=== PATIENT | male | born 1960 | race Caucasian/White ===

== ENCOUNTER 2016-08-29 11:01 | Emergency (ER) | payer MEDICARE, OTHER ==
[2016-08-29 12:41] LABS: BUN/CREATININE RATIO 11 (0-10)
[2016-08-29 13:01] LABS: HEMOGLOBIN 12.8 gm/dl (14.0-17.5); RED BLOOD COUNT 4.28 M/UL (4.20-5.50); WHITE BLOOD COUNT 2.4 K/UL (4.5-11.0)
== END 2016-08-29 13:52 | disposition home or self-care (01) ==
LOC: ER1 11:01
PROVIDERS: Emergency Medicine
DX: J06.9 Acute upper respiratory infection, unspecified (principal); J44.9 Chronic obstructive pulmonary disease, unspecified; F17.200 Nicotine dependence, unspecified, uncomplicated; Z79.899 Other long term (current) drug therapy
CPT/HCPCS: 36415; 71020; 80048; 85025; 87081; 87880; 99283

== ENCOUNTER 2016-09-04 04:59 | Emergency (ER) | payer MEDICARE, OTHER ==
[2016-09-04 07:43] LABS: RED BLOOD COUNT 3.68 M/UL (4.20-5.50); WHITE BLOOD COUNT 3.9 K/UL (4.5-11.0)
== END 2016-09-04 09:25 | disposition short-term general hospital (02) ==
LOC: ER1 04:59
PROVIDERS: Emergency Medicine
DX: A41.9 Sepsis, unspecified organism (principal); J18.9 Pneumonia, unspecified organism; J44.9 Chronic obstructive pulmonary disease, unspecified; F17.200 Nicotine dependence, unspecified, uncomplicated
CPT/HCPCS: 31500; 36415; 36430; 36600; 36620; 51702; 71010; 80053; 81001; 82803; 82962; 83605; 83880; 84484; 85025; 85610; 85730; 86618; 86850; 86900; 86901; 86920; 86927; 87040; 87077; 87086; 87186; 94640; 94664; 96361; 96374; 96375; 99291; 99292; C1751; J0330; J0456; J0610; J2185; J2250; J2930; J3370; J7030; J7050; P9016; P9017